=== PATIENT | male | born 1985 | race Caucasian/White ===

== ENCOUNTER 2017-08-17 11:56 | Emergency (ER) | payer BC ==
[~2017-08-17] VITALS: Ht 182.9 cm; Wt 79.4 kg
== END 2017-08-17 17:25 | disposition home or self-care (01) ==
LOC: ER 11:56
DX: K52.89 Other specified noninfective gastroenteritis and colitis (principal); E86.0 Dehydration

== ENCOUNTER 2017-08-18 18:36 | Emergency (ER) | payer BC ==
[~2017-08-18] VITALS: Ht 175.3 cm; Wt 77.1 kg
== END 2017-08-19 10:10 | disposition left against medical advice (07) ==
LOC: ER 18:36
DX: R10.84 Generalized abdominal pain (principal)